=== PATIENT | female | born 1980 | race African-American/Black ===

== ENCOUNTER 2024-06-19 12:52 | Emergency (ER) | payer OTHER ==
[2024-06-19 13:10] VITALS: BP 138/102; PULSE 88; RESP 18; TEMP 98.9; BMI 38.0
[2024-06-19] MEDS ORDERED: ACETAMINOPHEN INJECTION 100 ML ONE (15:09)
[2024-06-19] MEDS: ACETAMINOPHEN 1000 MG/100 ML BAG IVPB ONE (15:14)
[2024-06-19 15:19] LABS: BASO % 1.8 % (0-2.0); EOS % 1.2 % (0-4.5); HEMATOCRIT 28.3 % (32.4-45.2); HEMOGLOBIN 8.6 GM/dL (10.7-15.3); LYMPH % 26.1 % (8-40); MCHC 30.4 g/dl (32.0-36.0); MEAN CELL VOLUME 61.2 fl (80-96); MEAN PLT VOLUME 6.6 fl (7.5-11.1); MONO % 8.3 % (3.8-10.2); NEUT % 62.6 % (42.8-82.8); PLATELET COUNT 481 10^3/uL (134-434); RBC 4.63 M/mm3 (3.60-5.2); WHITE BLOOD COUNT 4.8 K/mm3 (4.0-10.0)
[2024-06-19 15:23] LABS: MCH 18.6 pg (25.7-33.7)
[2024-06-19 15:32] LABS: URINE APPEARANCE CLEAR; URINE BILIRUBIN NEGATIVE (NEGATIVE); URINE COLOR YELLOW; URINE GLUCOSE (UA) NEGATIVE (NEGATIVE); URINE KETONE TRACE (NEGATIVE); URINE LEUK ESTERASE NEGATIVE (NEGATIVE); URINE NITRITE NEGATIVE (NEGATIVE); URINE PROTEIN TRACE (NEGATIVE)
[2024-06-19 15:41] LABS: POTASSIUM 4.1 mmol/L (3.5-5.1)
[2024-06-19 15:43] LABS: CALCIUM 9.2 mg/dL (8.5-10.1)
[2024-06-19 15:44] LABS: ALBUMIN 3.8 g/dl (3.4-5.0); ANISOCYTOSIS 3+; BLOOD UREA NITROGEN 10.5 mg/dL (7-18); MACROCYTOSIS 1+; MAGNESIUM 2.4 mg/dL (1.8-2.4)
[2024-06-19 15:47] LABS: CREATININE 0.9 mg/dL (0.55-1.3)
[2024-06-19 15:49] LABS: BILIRUBIN,TOTAL 0.3 mg/dL (0.2-1); TOT PROT 7.5 g/dl (6.4-8.2)
[2024-06-19 16:51] LABS: HIV INTERPRETATION NEGATIVE (NEGATIVE)
[2024-06-19] MEDS: SODIUM CHLORIDE 0.9% 500 ML INFUS.BAG IV ONE (18:40)
== END 2024-06-19 20:10 | disposition home or self-care (01) ==
LOC: JER 12:52
PROC: 3E033NZ Introduction of Analgesics, Hypnotics, Sedatives into Peripheral Vein, Percutaneous Approach (ICD-10-PCS; principal; 2024-06-19)
DX: R53.1 Weakness (principal); R55 Syncope and collapse; R42 Dizziness and giddiness; J10.1 Influenza due to other identified influenza virus with other respiratory manifestations; Z20.822 Contact with and (suspected) exposure to COVID-19
CPT/HCPCS: 0241U-QW; 36415; 70450-TC; 70486-TC; 71045-TC-FY; 80053; 81003; 83735; 84484; 84703; 85025; 86803; 87086; 87389; 93005; 93010; 99285-25; J0131